=== PATIENT | male | born 1960 | race Caucasian/White ===

== ENCOUNTER 2019-03-28 07:57 | Outpatient (CLI) | payer BC, OTHER ==
[~2019-03-28 07:57] MED LIST: DOXY100T2 PO; RIVA15TA PO
[2019-03-28 09:20] LABS: *BILIRUBIN,URIN NEGATIVE (NEGATIVE); *BLOOD, URINE NEGATIVE (NEGATIVE); *CLARITY,URINE CLEAR (CLEAR); *COLOR,URINE YELLOW (YELLOW); *KETONES,URINE NEGATIVE (NEGATIVE); *UROBILINOGEN,URINE 0.2 E.U./dl (NORMAL); LEUKOCYTE ESTERASE ,URINE 1+ (NEGATIVE); NITRITE, URINE NEGATIVE (NEGATIVE); UGLUCOSE NEGATIVE (NEGATIVE)
[2019-03-28 09:32] LABS: BACTERIA,URINE NONE SEEN /HPF (NONE SEEN); RBC,URINE 0-3 /HPF (0-3)
[2019-03-28 09:33] LABS: MUCUS,URINE FEW /LPF (0-FEW); SQUAMOUS EPITHELIAL CELL,UR NONE SEEN /HPF (NONE SEEN)
[2019-03-28 09:44] LABS: BASOPHILS % (AUTO) 0.7 % (0.0-2.0); EOSINOPHILS # (AUTO) 0.1 K/uL (0.0-0.7); EOSINOPHILS % (AUTO) 2.3 % (0.0-7.0); HEMATOCRIT 46.4 % (36.7-47.1); HEMOGLOBIN 15.6 g/dL (12.5-16.3); LYMPHOCYTES # (AUTO) 2.1 K/uL (20.0-40.0); LYMPHOCYTES % (AUTO) 41.2 % (20.5-51.5); MEAN CORPUSCULAR HEMOGLOBIN 32.3 uug (23.8-33.4); MEAN CORPUSCULAR HGB CONC 34 g/dL (32.5-36.3); MEAN CORPUSCULAR VOLUME 95.9 fL (73.0-96.2); MONOCYTES # (AUTO) 0.3 K/uL (2.0-10.0); MONOCYTES % (AUTO) 6.6 % (0.0-11.0); NEUTROPHILS # (AUTO) 2.5 K/uL (1.8-8.9); NEUTROPHILS % (AUTO) 49.2 % (38.5-71.5); PLATELET COUNT (AUTO) 167 K/uL (152-348); RED BLOOD CELL COUNT(AUTO) 4.84 MIL/uL (4.06-5.63); WHITE BLOOD COUNT (AUTO) 5.1 K/uL (3.6-10.2)
[2019-03-28 09:58] LABS: BILIRUBIN,TOTAL 0.6 mg/dL (0.2-1.0); POTASSIUM 4.2 mmol/L (3.5-5.1); TOTAL PROTEIN, SERUM 7.1 g/dL (6.4-8.2); URIC ACID 5.4 mg/dL (3.5-7.2)
[2019-03-28 10:19] LABS: THYROID STIMULATING HORMONE 3.158 mIU/mL (0.358-3.740)
[2019-03-29 08:09] LABS: TRIIODOTHYRONINE, FREE 3.3 pg/mL (2.0-4.4)
[2019-03-29 12:06] LABS: *TESTOSTERONE, SERUM 186 ng/dL (264-916)
== END 2019-03-28 23:59 | disposition home or self-care (01) ==
LOC: LAB 07:57
PROVIDERS: ATTEND Legal Medicine
DX: Z00.00 Encounter for general adult medical examination without abnormal findings (principal)
CPT/HCPCS: 36415; 70030-TC; 83550; 84153; 84402; 84403; 84443; 84481; 84550; 85025; 85651; 86140; 87086

== ENCOUNTER 2019-04-17 20:39 | Emergency (ER) | payer BC, OTHER ==
[~2019-04-17] VITALS: Ht 177.8 cm; Wt 92.5 kg
--- NOTE | 2019-04-17 20:48 | NUR ---
ERMD at bedside
[2019-04-17] MEDS ORDERED: IPRATROPIUM BROMIDE 0.5 MG/2.5 ML NEBU NEB ONE (21:00)
[2019-04-17] MEDS ORDERED: ALBUTEROL SULFATE 2.5 MG/3 ML NEBU NEB ONE (21:00)
[2019-04-17 21:16] LABS: BASOPHILS % (AUTO) 0.5 % (0.0-2.0); EOSINOPHILS # (AUTO) 0.1 K/uL (0.0-0.7); HEMATOCRIT 41.8 % (36.7-47.1); HEMOGLOBIN 14.2 g/dL (12.5-16.3); LYMPHOCYTES # (AUTO) 2.4 K/uL (20.0-40.0); LYMPHOCYTES % (AUTO) 33.6 % (20.5-51.5); MEAN CORPUSCULAR HEMOGLOBIN 32.2 uug (23.8-33.4); MEAN CORPUSCULAR HGB CONC 34 g/dL (32.5-36.3); MEAN CORPUSCULAR VOLUME 95.1 fL (73.0-96.2); MONOCYTES # (AUTO) 0.7 K/uL (2.0-10.0); MONOCYTES % (AUTO) 9.2 % (0.0-11.0); NEUTROPHILS % (AUTO) 55.7 % (38.5-71.5); PLATELET COUNT (AUTO) 152 K/uL (152-348); WHITE BLOOD COUNT (AUTO) 7.3 K/uL (3.6-10.2)
[2019-04-17 21:23] LABS: CREATININE 1.3 mg/dL (0.6-1.3)
[2019-04-17] MEDS ORDERED: IPRATROPIUM BROMIDE 0.5 MG/2.5 ML NEBU ONE (21:25)
[2019-04-17] MEDS ORDERED: ALBUTEROL SULFATE 2.5 MG/3 ML NEBU ONE (21:25)
--- NOTE | 2019-04-17 21:25 | NUR ---
Patient ambulated with stable gait. Speech clear, speaks in complte sentences. A/Ox4. No neuro deficits noted. Patient came for c/o cough x6mths and difficulty with breathing. No observed cough upon assessment. No cardiovascular distress noted. All pulses palpable. at bedside accompanying patient. Patient in bed at lowest position, sr upx2, call light within reach.
--- NOTE | 2019-04-17 22:30 | NUR ---
Patient discharged to home in stable conditon. Written and verbal after care instructions given. Patient verbalizes understanding of instructions. Patient ambulated with stable gait.
[2019-04-17 22:55] VITALS: BP 119/72
== END 2019-04-17 22:56 | disposition home or self-care (01) ==
LOC: ER 20:39
DX: R05 Cough (principal); R06.02 Shortness of breath; Z87.891 Personal history of nicotine dependence; Z79.899 Other long term (current) drug therapy; Z79.2 Long term (current) use of antibiotics
CPT/HCPCS: 36415; 71045; 85025; 87040; A4663; J3590

== ENCOUNTER 2019-06-11 | Outpatient (CLI) | payer BC, OTHER | END 2019-06-11 23:59 | disposition home or self-care (01) | CPT/HCPCS: 36415; 84153; 84403; 84443; 85025 ==

== ENCOUNTER 2019-09-04 19:51 | Emergency (ER) | payer BC, OTHER ==
[~2019-09-04] VITALS: Ht 180.3 cm; Wt 90.7 kg
--- NOTE | 2019-09-04 20:10 | NUR ---
Dr. Antony at bedside for MSE
[2019-09-04] MEDS ORDERED: IV NORMAL SALINE 1000 ML BAG IV ONE (20:45)
[2019-09-04] MEDS ORDERED: KETOROLAC TROMETHAMINE 15 MG INJ IVP ONE ×2 (20:45→23:00)
[2019-09-04 20:57] LABS: BASOPHILS # (AUTO) 0.1 K/uL (0.0-8.0); BASOPHILS % (AUTO) 0.9 % (0.0-2.0); EOSINOPHILS # (AUTO) 0.1 K/uL (0.0-0.7); EOSINOPHILS % (AUTO) 0.9 % (0.0-7.0); HEMATOCRIT 42.7 % (36.7-47.1); HEMOGLOBIN 14.4 g/dL (12.5-16.3); LYMPHOCYTES % (AUTO) 25.5 % (20.5-51.5); MEAN CORPUSCULAR HGB CONC 34 g/dL (32.5-36.3); MEAN CORPUSCULAR VOLUME 97.7 fL (73.0-96.2); MONOCYTES # (AUTO) 0.5 K/uL (2.0-10.0); MONOCYTES % (AUTO) 5.8 % (0.0-11.0); NEUTROPHILS # (AUTO) 5.2 K/uL (1.8-8.9); NEUTROPHILS % (AUTO) 66.9 % (38.5-71.5); PLATELET COUNT (AUTO) 159 K/uL (152-348); RED BLOOD CELL COUNT(AUTO) 4.37 MIL/uL (4.06-5.63); WHITE BLOOD COUNT (AUTO) 7.8 K/uL (3.6-10.2)
[2019-09-04 21:12] LABS: *BILIRUBIN,URIN NEGATIVE (NEGATIVE); *BLOOD, URINE NEGATIVE (NEGATIVE); *CLARITY,URINE CLOUDY (CLEAR); *COLOR,URINE YELLOW (YELLOW); *KETONES,URINE NEGATIVE (NEGATIVE); *UROBILINOGEN,URINE 0.2 E.U./dl (NORMAL); LEUKOCYTE ESTERASE ,URINE TRACE (NEGATIVE); NITRITE, URINE NEGATIVE (NEGATIVE); PH,URINE 7.5 (5.0-8.0); UGLUCOSE NEGATIVE (NEGATIVE)
--- NOTE | 2019-09-04 21:12 | NUR ---
PATIENT TAKEN TO RADIOLOGY DEPT. FOR CT SCAN
[2019-09-04 21:17] LABS: CREATININE 1.2 mg/dL (0.6-1.3); POTASSIUM 4.3 mmol/L (3.5-5.1)
[2019-09-04 21:22] LABS: BILIRUBIN,DIRECT 0.1 mg/dL (0.0-0.2); BILIRUBIN,TOTAL 0.7 mg/dL (0.2-1.0); TOTAL PROTEIN, SERUM 7.1 g/dL (6.4-8.2)
--- NOTE | 2019-09-04 21:24 | NUR ---
PT BACK FROM RADIOLOGY DEPT.
[2019-09-04 21:34] LABS: URINE AMORPHOUS PHOSPHATES MANY /HPF
[2019-09-04] MEDS ORDERED: KETOROLAC TROMETHAMINE 15 MG INJ ONE (22:51)
--- NOTE | 2019-09-04 23:05 | NUR ---
IV removed. Catheter intact and site benign. Pressure and 4x4 gauze applied to site. No bleeding noted. Patient given written and verbal discharge instructions. Patient verbalizes understanding of instructions. Patient is ambulatory with steady gait.
[2019-09-04 23:06] VITALS: BP 133/75
== END 2019-09-04 23:05 | disposition home or self-care (01) ==
LOC: ER 19:53
DX: N39.0 Urinary tract infection, site not specified (principal); Z87.891 Personal history of nicotine dependence; Z79.2 Long term (current) use of antibiotics; Z79.899 Other long term (current) drug therapy
CPT/HCPCS: 36415; 74176; 80048; 80076; 81000; 81001; 83690; 85025; 87086; 93005; 96374; 99284; J1885; A4663; J7030

== ENCOUNTER 2019-12-16 08:04 | Outpatient (CLI) | payer BC, OTHER ==
[2019-12-16 09:51] LABS: *BILIRUBIN,URIN NEGATIVE (NEGATIVE); *BLOOD, URINE NEGATIVE (NEGATIVE); *CLARITY,URINE CLEAR (CLEAR); *COLOR,URINE YELLOW (YELLOW); *KETONES,URINE NEGATIVE (NEGATIVE); *UROBILINOGEN,URINE 0.2 E.U./dl (NORMAL); LEUKOCYTE ESTERASE ,URINE NEGATIVE (NEGATIVE); NITRITE, URINE NEGATIVE (NEGATIVE); PH,URINE 5.5 (5.0-8.0); UGLUCOSE NEGATIVE (NEGATIVE)
[2019-12-16 09:53] LABS: BASOPHILS % (AUTO) 0.9 % (0.0-2.0); EOSINOPHILS # (AUTO) 0.1 K/uL (0.0-0.7); EOSINOPHILS % (AUTO) 1.7 % (0.0-7.0); HEMATOCRIT 44.8 % (36.7-47.1); HEMOGLOBIN 15.1 g/dL (12.5-16.3); LYMPHOCYTES # (AUTO) 1.6 K/uL (20.0-40.0); LYMPHOCYTES % (AUTO) 40.5 % (20.5-51.5); MEAN CORPUSCULAR HEMOGLOBIN 32.8 uug (23.8-33.4); MEAN CORPUSCULAR HGB CONC 34 g/dL (32.5-36.3); MEAN CORPUSCULAR VOLUME 97.2 fL (73.0-96.2); MONOCYTES # (AUTO) 0.3 K/uL (2.0-10.0); MONOCYTES % (AUTO) 6.4 % (0.0-11.0); NEUTROPHILS % (AUTO) 50.5 % (38.5-71.5); PLATELET COUNT (AUTO) 150 K/uL (152-348); WHITE BLOOD COUNT (AUTO) 3.9 K/uL (3.6-10.2)
[2019-12-16 10:47] LABS: *RHEUMATOID FACTOR SCREEN NEGATIVE (NEGATIVE)
[2019-12-16 11:46] LABS: BILIRUBIN,TOTAL 0.6 mg/dL (0.2-1.0); CREATININE 0.9 mg/dL (0.6-1.3); TOTAL PROTEIN, SERUM 7.2 g/dL (6.4-8.2)
[2019-12-16 12:11] LABS: URIC ACID 4.9 mg/dL (3.5-7.2)
[2019-12-16 12:31] LABS: THYROID STIMULATING HORMONE 1.82 mIU/mL (0.358-3.740)
[2019-12-17 08:06] LABS: *TESTOSTERONE, SERUM 203 ng/dL (264-916)
[2019-12-17 19:07] LABS: *SJOGREN'S ANTI-SS-A <0.2 AI (0.0-0.9); *SJOGREN'S ANTI-SS-B <0.2 AI (0.0-0.9); *SMITH ANTIBODIES <0.2 AI (0.0-0.9); ANTI-DNA(DS) AB, QN 1 IU/mL (0-9)
[2019-12-19 08:07] LABS: TEST, %FREE+WK BOUND 25.6 % (9.0-46.0)
== END 2019-12-16 23:29 | disposition home or self-care (01) ==
LOC: LAB 08:04
PROVIDERS: ATTEND Legal Medicine
DX: Z00.00 Encounter for general adult medical examination without abnormal findings (principal); I12.9 Hypertensive chronic kidney disease with stage 1 through stage 4 chronic kidney disease, or unspecified chronic kidney disease; E11.22 Type 2 diabetes mellitus with diabetic chronic kidney disease; N18.9 Chronic kidney disease, unspecified; E03.9 Hypothyroidism, unspecified; D64.9 Anemia, unspecified; E55.9 Vitamin D deficiency, unspecified; R10.9 Unspecified abdominal pain
CPT/HCPCS: 70030-TC; 82306; 83550; 84153; 84402; 84403; 84443; 84550; 85025; 85651; 86038; 86430; 87086

== ENCOUNTER 2020-01-19 06:00 | Emergency (ER) | payer BC, OTHER ==
[~2020-01-19] VITALS: Ht 177.8 cm; Wt 95.3 kg
--- NOTE | 2020-01-19 06:11 | NUR ---
Patient walked into ER from home with c/o being dizzy and high blood pressure since yesterday morning, patient denies any chest pain or shortness of breath at this time, states he feels like the room is spinning, c/o headache, neck and shoulder pain.
[2020-01-19] MEDS ORDERED: MECLIZINE HCL 25 MG TABLET ONE (06:23)
[2020-01-19] MEDS ORDERED: MECLIZINE HCL 25 MG TABLET PO ONE (06:30)
[2020-01-19 06:35] LABS: HEMOGLOBIN 15.1 g/dL (12.5-16.3); NEUTROPHILS # (AUTO) 3.5 K/uL (1.8-8.9)
[2020-01-19] MEDS ORDERED: CLONIDINE HCL 0.1 MG TABLET PO ONE (06:45)
[2020-01-19] MEDS ORDERED: CLONIDINE HCL 0.1 MG TABLET ONE (06:47)
[2020-01-19 06:48] LABS: BASOPHILS % (AUTO) 0.7 % (0.0-2.0); EOSINOPHILS # (AUTO) 0.1 K/uL (0.0-0.7); EOSINOPHILS % (AUTO) 1.1 % (0.0-7.0); HEMATOCRIT 44.5 % (36.7-47.1); LYMPHOCYTES # (AUTO) 1.6 K/uL (20.0-40.0); LYMPHOCYTES % (AUTO) 29.5 % (20.5-51.5); MEAN CORPUSCULAR HGB CONC 34 g/dL (32.5-36.3); MEAN CORPUSCULAR VOLUME 97.3 fL (73.0-96.2); MONOCYTES # (AUTO) 0.4 K/uL (2.0-10.0); MONOCYTES % (AUTO) 6.5 % (0.0-11.0); NEUTROPHILS % (AUTO) 62.2 % (38.5-71.5); PLATELET COUNT (AUTO) 136 K/uL (152-348); POTASSIUM 3.9 mmol/L (3.5-5.1); RED BLOOD CELL COUNT(AUTO) 4.57 MIL/uL (4.06-5.63)
[2020-01-19 06:49] LABS: WHITE BLOOD COUNT (AUTO) 5.6 K/uL (3.6-10.2)
--- NOTE | 2020-01-19 07:10 | NUR ---
Pt denies dizziness at this time and walked to the bathroom w/o difficulty.
--- NOTE | 2020-01-19 07:30 | NUR ---
Patient discharged to home in stable condition. Written and verbal after care instructions given. Patient verbalizes understanding of instructions. Stressed follow up or return to ER for worseningof s/s.
[2020-01-19 07:34] VITALS: BP 106/93
== END 2020-01-19 07:35 | disposition home or self-care (01) ==
LOC: ER 06:02
DX: I10 Essential (primary) hypertension (principal); R51 Headache; R42 Dizziness and giddiness
CPT/HCPCS: 36415; 85025; 93005; A4663; J8597

== ENCOUNTER 2020-04-15 10:41 | Outpatient (CLI) | payer BC, OTHER | END 2020-04-15 23:59 | disposition home or self-care (01) | LOC: RAD 10:41 | PROVIDERS: ATTEND Legal Medicine | DX: M17.0 Bilateral primary osteoarthritis of knee (principal); M79.89 Other specified soft tissue disorders | CPT/HCPCS: 73562 ==

== ENCOUNTER 2020-04-27 09:00 | Emergency (ER) | payer BC, OTHER ==
[~2020-04-27] VITALS: Ht 177.8 cm; Wt 95.3 kg
[2020-04-27] MEDS: MECLIZINE HCL 25 MG TABLET PO ONE (09:14)
[2020-04-27] MEDS ORDERED: MECLIZINE HCL 25 MG TABLET ONE (09:16)
[2020-04-27 09:28] LABS: BASOPHILS % (AUTO) 0.7 % (0.0-2.0); EOSINOPHILS # (AUTO) 0.1 K/uL (0.0-0.7); EOSINOPHILS % (AUTO) 1.1 % (0.0-7.0); HEMATOCRIT 45.6 % (36.7-47.1); HEMOGLOBIN 15.5 g/dL (12.5-16.3); LYMPHOCYTES # (AUTO) 1.7 K/uL (20.0-40.0); LYMPHOCYTES % (AUTO) 33.6 % (20.5-51.5); MEAN CORPUSCULAR HEMOGLOBIN 33.1 uug (23.8-33.4); MEAN CORPUSCULAR HGB CONC 34 g/dL (32.5-36.3); MEAN CORPUSCULAR VOLUME 97.5 fL (73.0-96.2); MONOCYTES # (AUTO) 0.2 K/uL (2.0-10.0); NEUTROPHILS % (AUTO) 59.6 % (38.5-71.5); PLATELET COUNT (AUTO) 154 K/uL (152-348); RED BLOOD CELL COUNT(AUTO) 4.68 MIL/uL (4.06-5.63)
[2020-04-27 09:38] LABS: CREATININE 1.2 mg/dL (0.6-1.3); POTASSIUM 4.2 mmol/L (3.5-5.1)
--- NOTE | 2020-04-27 09:55 | NUR ---
PATIENT WAS SEEN BY . 12 LEAD EKGDONE. URINE SENT TO LAB. CT DONE. DRGREENSPAN AT BEDSIDE SPEAKING TOPATIENTABOUTTEST RESULTSAND PLAN. BP NOW AT 149/97, PATIENT STATES DIZZINESS HAS DIMINISHED SOME
--- NOTE | 2020-04-27 10:07 | NUR ---
DC, RX AND FOLLOW UP INSTRUCTIONS GIVEN AND EXPLAINED TO PATIENT WHO STATES HE UNDERSTANDS ALL INSTRUCTIONS. MECLIZINE PRECAUTIONS STATED TO PATIENT AND
== END 2020-04-27 10:08 | disposition home or self-care (01) ==
LOC: ER 09:00
DX: I10 Essential (primary) hypertension (principal); R42 Dizziness and giddiness; Z87.891 Personal history of nicotine dependence
CPT/HCPCS: 36415; 70030-TC; 70450; 85025; 93005; A4663; J8597

== ENCOUNTER 2020-08-04 07:43 | Outpatient (CLI) | payer BC, OTHER ==
[2020-08-04 08:22] LABS: *BILIRUBIN,URIN NEGATIVE (NEGATIVE); *BLOOD, URINE NEGATIVE (NEGATIVE); *CLARITY,URINE SLIGHTLY CLOUDY (CLEAR); *COLOR,URINE YELLOW (YELLOW); *KETONES,URINE NEGATIVE (NEGATIVE); *UROBILINOGEN,URINE 0.2 E.U./dl (NORMAL); LEUKOCYTE ESTERASE ,URINE NEGATIVE (NEGATIVE); NITRITE, URINE NEGATIVE (NEGATIVE); UGLUCOSE NEGATIVE (NEGATIVE)
[2020-08-04 09:01] LABS: BILIRUBIN,TOTAL 0.6 mg/dL (0.2-1.0); CREATININE 1.1 mg/dL (0.6-1.3); POTASSIUM 4.4 mmol/L (3.5-5.1); TOTAL PROTEIN, SERUM 7.4 g/dL (6.4-8.2)
[2020-08-04 09:02] LABS: BASOPHILS % (AUTO) 0.6 % (0.0-2.0); EOSINOPHILS # (AUTO) 0.1 K/uL (0.0-0.7); EOSINOPHILS % (AUTO) 1.3 % (0.0-7.0); HEMATOCRIT 45.9 % (36.7-47.1); HEMOGLOBIN 16.1 g/dL (12.5-16.3); LYMPHOCYTES # (AUTO) 1.8 K/uL (20.0-40.0); LYMPHOCYTES % (AUTO) 34.8 % (20.5-51.5); MEAN CORPUSCULAR HGB CONC 35 g/dL (32.5-36.3); MEAN CORPUSCULAR VOLUME 97.1 fL (73.0-96.2); MONOCYTES # (AUTO) 0.3 K/uL (2.0-10.0); MONOCYTES % (AUTO) 5.7 % (0.0-11.0); NEUTROPHILS % (AUTO) 57.6 % (38.5-71.5); PLATELET COUNT (AUTO) 181 K/uL (152-348); RED BLOOD CELL COUNT(AUTO) 4.73 MIL/uL (4.06-5.63); WHITE BLOOD COUNT (AUTO) 5.2 K/uL (3.6-10.2)
[2020-08-04 09:05] LABS: THYROID STIMULATING HORMONE 2.044 mIU/mL (0.358-3.740)
[2020-08-04 10:31] LABS: URIC ACID 4.7 mg/dL (3.5-7.2)
[2020-08-04 11:32] LABS: RBC,URINE NONE SEEN /HPF (0-3)
[2020-08-04 11:33] LABS: SQUAMOUS EPITHELIAL CELL,UR FEW /HPF (NONE SEEN); WBC,URINE 0-3 /HPF (0-3)
[2020-08-04 11:34] LABS: BACTERIA,URINE FEW /HPF (NONE SEEN)
[2020-08-05 11:10] LABS: *TESTOSTERONE, SERUM 273 ng/dL (264-916)
== END 2020-08-04 23:59 | disposition home or self-care (01) ==
LOC: LAB 07:43
PROVIDERS: ATTEND Legal Medicine
DX: I12.9 Hypertensive chronic kidney disease with stage 1 through stage 4 chronic kidney disease, or unspecified chronic kidney disease (principal); E11.22 Type 2 diabetes mellitus with diabetic chronic kidney disease; N18.9 Chronic kidney disease, unspecified; E55.9 Vitamin D deficiency, unspecified; E03.9 Hypothyroidism, unspecified; E78.00 Pure hypercholesterolemia, unspecified; Z00.00 Encounter for general adult medical examination without abnormal findings
CPT/HCPCS: 36415; 83550; 84153; 84402; 84403; 84443; 84550; 85025

== ENCOUNTER 2021-02-01 07:38 | Outpatient (CLI) | payer BC, OTHER ==
[2021-02-01 08:40] LABS: *BILIRUBIN,URIN NEGATIVE (NEGATIVE); *BLOOD, URINE NEGATIVE (NEGATIVE); *CLARITY,URINE CLEAR (CLEAR); *COLOR,URINE YELLOW (YELLOW); *KETONES,URINE NEGATIVE (NEGATIVE); *UROBILINOGEN,URINE 0.2 E.U./dl (NORMAL); LEUKOCYTE ESTERASE ,URINE TRACE (NEGATIVE); NITRITE, URINE NEGATIVE (NEGATIVE); PH,URINE 5.5 (5.0-8.0); UGLUCOSE NEGATIVE (NEGATIVE)
[2021-02-01 08:44] LABS: BASOPHILS % (AUTO) 0.6 % (0.0-2.0); EOSINOPHILS # (AUTO) 0.1 K/uL (0.0-0.7); EOSINOPHILS % (AUTO) 1.5 % (0.0-7.0); HEMATOCRIT 45.9 % (36.7-47.1); HEMOGLOBIN 15.6 g/dL (12.5-16.3); LYMPHOCYTES % (AUTO) 36.6 % (20.5-51.5); MEAN CORPUSCULAR HEMOGLOBIN 33.2 uug (23.8-33.4); MEAN CORPUSCULAR HGB CONC 34 g/dL (32.5-36.3); MEAN CORPUSCULAR VOLUME 97.8 fL (73.0-96.2); MONOCYTES # (AUTO) 0.4 K/uL (2.0-10.0); MONOCYTES % (AUTO) 7.1 % (0.0-11.0); NEUTROPHILS % (AUTO) 54.2 % (38.5-71.5); PLATELET COUNT (AUTO) 164 K/uL (152-348); RED BLOOD CELL COUNT(AUTO) 4.69 MIL/uL (4.06-5.63); WHITE BLOOD COUNT (AUTO) 5.5 K/uL (3.6-10.2)
[2021-02-01 08:58] LABS: THYROID STIMULATING HORMONE 2.498 mIU/mL (0.358-3.740)
[2021-02-01 12:08] LABS: BILIRUBIN,TOTAL 0.5 mg/dL (0.2-1.0); CREATININE 1.1 mg/dL (0.6-1.3); POTASSIUM 4.7 mmol/L (3.5-5.1)
[2021-02-01 14:02] LABS: BACTERIA,URINE NONE SEEN /HPF (NONE SEEN); RBC,URINE NONE SEEN /HPF (0-3); SQUAMOUS EPITHELIAL CELL,UR NONE SEEN /HPF (NONE SEEN); WBC,URINE 0-3 /HPF (0-3)
[2021-02-01 17:15] LABS: URIC ACID 5.2 mg/dL (3.5-7.2)
== END 2021-02-01 23:59 | disposition home or self-care (01) ==
LOC: LAB 07:38
PROVIDERS: ATTEND Legal Medicine
DX: I10 Essential (primary) hypertension (principal); E11.9 Type 2 diabetes mellitus without complications; E78.00 Pure hypercholesterolemia, unspecified; E03.9 Hypothyroidism, unspecified; D64.9 Anemia, unspecified; Z00.00 Encounter for general adult medical examination without abnormal findings; E55.9 Vitamin D deficiency, unspecified; R53.1 Weakness
CPT/HCPCS: 82306; 82746; 83550; 84153; 84402; 84403; 84443; 84550; 85025; 87086

== ENCOUNTER 2021-05-18 07:11 | Outpatient (CLI) | payer BC, OTHER ==
[2021-05-18 08:41] LABS: HEMATOCRIT 44.7 % (36.7-47.1); MEAN CORPUSCULAR HEMOGLOBIN 33.1 uug (23.8-33.4); MEAN CORPUSCULAR VOLUME 97.1 fL (73.0-96.2); PLATELET COUNT (AUTO) 163 K/uL (152-348)
[2021-05-18 08:43] LABS: *BILIRUBIN,URIN NEGATIVE (NEGATIVE); *BLOOD, URINE NEGATIVE (NEGATIVE); *CLARITY,URINE CLEAR (CLEAR); *COLOR,URINE YELLOW (YELLOW); *KETONES,URINE NEGATIVE (NEGATIVE); *UROBILINOGEN,URINE 0.2 E.U./dl (NORMAL); LEUKOCYTE ESTERASE ,URINE 1+ (NEGATIVE); NITRITE, URINE NEGATIVE (NEGATIVE); PH,URINE 5.5 (5.0-8.0); UGLUCOSE NEGATIVE (NEGATIVE)
[2021-05-18 08:57] LABS: THYROID STIMULATING HORMONE 1.873 mIU/mL (0.358-3.740)
[2021-05-18 09:57] LABS: BILIRUBIN,TOTAL 0.7 mg/dL (0.2-1.0); POTASSIUM 4.2 mmol/L (3.5-5.1); TOTAL PROTEIN, SERUM 7.5 g/dL (6.4-8.2); URIC ACID 5.6 mg/dL (3.5-7.2)
[2021-05-18 13:59] LABS: BACTERIA,URINE FEW /HPF (NONE SEEN); RBC,URINE 0-3 /HPF (0-3); SQUAMOUS EPITHELIAL CELL,UR NONE SEEN /HPF (NONE SEEN); URINE AMORPHOUS URATE MANY /HPF
[2021-05-19 06:06] LABS: *TESTOSTERONE, SERUM 167 ng/dL (264-916)
[2021-05-19 11:07] LABS: *SJOGREN'S ANTI-SS-A <0.2 AI (0.0-0.9); *SJOGREN'S ANTI-SS-B <0.2 AI (0.0-0.9); *SMITH ANTIBODIES <0.2 AI (0.0-0.9); ANTI-DNA(DS) AB, QN <1 IU/mL (0-9)
== END 2021-05-18 23:59 | disposition home or self-care (01) ==
LOC: LAB 07:11
PROVIDERS: ATTEND Legal Medicine
DX: N39.0 Urinary tract infection, site not specified (principal); E03.9 Hypothyroidism, unspecified; D64.9 Anemia, unspecified; E55.9 Vitamin D deficiency, unspecified; R30.0 Dysuria; R53.1 Weakness; R10.9 Unspecified abdominal pain; Z00.00 Encounter for general adult medical examination without abnormal findings
CPT/HCPCS: 36415; 70030-TC; 82306; 82746; 83550; 84153; 84402; 84403; 84443; 84550; 85025; 85651; 86038; 86140; 87086

== ENCOUNTER 2021-07-06 11:38 | Emergency (ER) | payer BC, OTHER ==
[~2021-07-06] VITALS: Ht 177.8 cm; Wt 95.3 kg
[2021-07-06] MEDS ORDERED: TAMS-3 PO (12:11)
[2021-07-06] MEDS ORDERED: LOSA50TA39 PO (12:11)
[2021-07-06] MEDS ORDERED: CYCLOBENZAPRINE HCL 10 MG TABLET PO ONE (12:15)
[2021-07-06] MEDS ORDERED: KETOROLAC TROMETHAMINE 60 MG INJ IM ONE ×2 (12:15→12:22)
[2021-07-06] MEDS ORDERED: CYCLOBENZAPRINE HCL 10 MG TABLET ONE (12:22)
[2021-07-06] MEDS ORDERED: CYCL10TA9 PO (14:21)
[2021-07-06] MEDS ORDERED: NAPR-1164 PO (14:21)
--- NOTE | 2021-07-06 14:30 | NUR ---
DR ATKINSON AT BEDSIDE SPOKE WITH PATIENT MADE AWARE OF TEST RESULTS.
--- NOTE | 2021-07-06 14:37 | NUR ---
Patient discharged to home in stable condition. Written and verbal after care instructions given. Patient verbalizes understanding of instructions. Stressed follow up or return to ER for worsening s/s.
[2021-07-06 14:39] VITALS: BP 122/81
== END 2021-07-06 14:40 | disposition home or self-care (01) ==
LOC: ER 11:38
DX: S13.9XXA Sprain of joints and ligaments of unspecified parts of neck, initial encounter (principal); S00.81XA Abrasion of other part of head, initial encounter; V49.40XA Driver injured in collision with unspecified motor vehicles in traffic accident, initial encounter; Y92.414 Local residential or business street as the place of occurrence of the external cause; M79.18 Myalgia, other site; Z87.891 Personal history of nicotine dependence; E78.5 Hyperlipidemia, unspecified; Z79.01 Long term (current) use of anticoagulants; Z79.899 Other long term (current) drug therapy; M47.9 Spondylosis, unspecified
CPT/HCPCS: 70450; 72125; 96372; 99285; J1885; A4663

== ENCOUNTER 2021-11-28 07:20 | Outpatient (CLI) | payer BC, OTHER ==
[~2021-11-28 07:20] MED LIST changes: +CYCL10TA9 PO; -DOXY100T2 PO; +LOSA50TA39 PO; +NAPR-1164 PO; -RIVA15TA PO; +TAMS-3 PO
[2021-11-28 08:33] LABS: HEMATOCRIT 43.7 % (36.7-47.1); MEAN CORPUSCULAR HEMOGLOBIN 33.2 uug (23.8-33.4); MEAN CORPUSCULAR VOLUME 96.9 fL (73.0-96.2); PLATELET COUNT (AUTO) 173 K/uL (152-348)
[2021-11-28 08:47] LABS: *BILIRUBIN,URIN NEGATIVE (NEGATIVE); *BLOOD, URINE NEGATIVE (NEGATIVE); *CLARITY,URINE CLEAR (CLEAR); *COLOR,URINE YELLOW (YELLOW); *KETONES,URINE NEGATIVE (NEGATIVE); *UROBILINOGEN,URINE 0.2 E.U./dl (NORMAL); LEUKOCYTE ESTERASE ,URINE TRACE (NEGATIVE); NITRITE, URINE NEGATIVE (NEGATIVE); PH,URINE 5.5 (5.0-8.0); UGLUCOSE NEGATIVE (NEGATIVE)
[2021-11-28 08:51] LABS: BILIRUBIN,TOTAL 0.7 mg/dL (0.2-1.0); POTASSIUM 4.1 mmol/L (3.5-5.1)
[2021-11-28 08:56] LABS: THYROID STIMULATING HORMONE 2.015 mIU/mL (0.358-3.740)
[2021-11-28 15:45] LABS: BACTERIA,URINE MODERATE /HPF (NONE SEEN); RBC,URINE 0-3 /HPF (0-3); SQUAMOUS EPITHELIAL CELL,UR FEW /HPF (NONE SEEN)
[2021-11-29 08:06] LABS: *TESTOSTERONE, SERUM 194 ng/dL (264-916)
== END 2021-11-28 23:59 | disposition home or self-care (01) ==
LOC: LAB 07:20
PROVIDERS: ATTEND Legal Medicine
DX: E11.9 Type 2 diabetes mellitus without complications (principal); E78.5 Hyperlipidemia, unspecified; E55.9 Vitamin D deficiency, unspecified; N40.0 Benign prostatic hyperplasia without lower urinary tract symptoms; E03.9 Hypothyroidism, unspecified; D64.9 Anemia, unspecified; Z00.00 Encounter for general adult medical examination without abnormal findings
CPT/HCPCS: 36415; 82306; 82746; 83550; 84153; 84402; 84403; 84443; 84550; 85025; 87086

== ENCOUNTER 2022-11-29 07:38 | Outpatient (CLI) | payer BC, OTHER ==
[2022-11-29 08:41] LABS: *BILIRUBIN,URIN NEGATIVE (NEGATIVE); *BLOOD, URINE NEGATIVE (NEGATIVE); *CLARITY,URINE CLEAR (CLEAR); *COLOR,URINE YELLOW (YELLOW); *KETONES,URINE NEGATIVE (NEGATIVE); *UROBILINOGEN,URINE 0.2 E.U./dl (NORMAL); LEUKOCYTE ESTERASE ,URINE TRACE (NEGATIVE); NITRITE, URINE NEGATIVE (NEGATIVE); PH,URINE 5.5 (5.0-8.0); UGLUCOSE NEGATIVE (NEGATIVE)
[2022-11-29 08:59] LABS: BILIRUBIN,DIRECT 0.1 mg/dL (0.0-0.2); BILIRUBIN,TOTAL 0.5 mg/dL (0.2-1.0); CREATININE 0.9 mg/dL (0.6-1.3); POTASSIUM 4.1 mmol/L (3.5-5.1); TOTAL PROTEIN, SERUM 7.1 g/dL (6.4-8.2)
[2022-11-29 09:05] LABS: HEMATOCRIT 45.3 % (36.7-47.1); MEAN CORPUSCULAR HEMOGLOBIN 32.9 uug (23.8-33.4); MEAN CORPUSCULAR VOLUME 96.4 fL (73.0-96.2); PLATELET COUNT (AUTO) 181 K/uL (152-348)
[2022-11-29 10:17] LABS: BACTERIA,URINE NONE SEEN /HPF (NONE SEEN); RBC,URINE NONE SEEN /HPF (0-3); SQUAMOUS EPITHELIAL CELL,UR NONE SEEN /HPF (NONE SEEN)
[2022-11-29 12:05] LABS: THYROID STIMULATING HORMONE 1.686 mIU/mL (0.358-3.740)
== END 2022-11-29 23:59 | disposition home or self-care (01) ==
LOC: LAB 07:38
PROVIDERS: ATTEND Internal Medicine
DX: I10 Essential (primary) hypertension (principal); N40.0 Benign prostatic hyperplasia without lower urinary tract symptoms; M19.90 Unspecified osteoarthritis, unspecified site
CPT/HCPCS: 36415; 82306; 84153; 84443; 85025; 86140

== ENCOUNTER 2023-03-16 07:32 | Outpatient (CLI) | payer BC, OTHER ==
[2023-03-16 09:15] LABS: *BILIRUBIN,URIN NEGATIVE (NEGATIVE); *BLOOD, URINE NEGATIVE (NEGATIVE); *CLARITY,URINE CLEAR (CLEAR); *COLOR,URINE YELLOW (YELLOW); *KETONES,URINE NEGATIVE (NEGATIVE); *UROBILINOGEN,URINE 0.2 E.U./dl (NORMAL); LEUKOCYTE ESTERASE ,URINE NEGATIVE (NEGATIVE); NITRITE, URINE NEGATIVE (NEGATIVE); UGLUCOSE NEGATIVE (NEGATIVE)
[2023-03-16 09:17] LABS: HEMATOCRIT 43.8 % (36.7-47.1); MEAN CORPUSCULAR HEMOGLOBIN 32.9 uug (23.8-33.4); MEAN CORPUSCULAR VOLUME 96.6 fL (73.0-96.2); PLATELET COUNT (AUTO) 169 K/uL (152-348)
[2023-03-16 09:31] LABS: IRON, SERUM 128 ug/dL (50-175)
[2023-03-16 09:45] LABS: THYROID STIMULATING HORMONE 1.418 mIU/mL (0.358-3.740)
[2023-03-16 09:46] LABS: ALANINE AMINOTRANSFERASE 25 U/L (16-63); ALKALINE PHOSPHATASE 46 U/L (50-136); ASPARTATE AMINOTRANSFERASE 13 U/L (15-37); BILIRUBIN,TOTAL 0.6 mg/dL (0.2-1.0); CARBON DIOXIDE 28 mmol/L (21-32); CHLORIDE 102 mmol/L (98-107); CHOLESTEROL 220 mg/dL (<200); CREATININE 0.9 mg/dL (0.6-1.3); FERRITIN 277 ng/mL (26-388); GLUCOSE 119 mg/dL (74-106); HDL CHOLESTEROL 42 mg/dL (40-60); MAGNESIUM 2.2 mg/dL (1.8-2.4); POTASSIUM 4.4 mmol/L (3.5-5.1); TOTAL PROTEIN, SERUM 7.3 g/dL (6.4-8.2); TRIGLYCERIDES 131 MG/DL (30-150); UREA NITROGEN, BLOOD 13 mg/dL (7-18)
[2023-03-17 11:06] LABS: *TESTOSTERONE, SERUM 124 ng/dL (264-916)
[2023-03-17 13:07] LABS: HEPATITIS A AB, IgM Negative (Negative); HEPATITIS B SURFACE AG Negative (Negative)
[2023-03-23 10:07] LABS: TEST, %FREE+WK BOUND 27.4 % (9.0-46.0)
== END 2023-03-16 23:59 | disposition home or self-care (01) ==
LOC: LAB 07:32
PROVIDERS: ATTEND Internal Medicine
DX: Z00.00 Encounter for general adult medical examination without abnormal findings (principal); N40.0 Benign prostatic hyperplasia without lower urinary tract symptoms; I10 Essential (primary) hypertension; V70.0XXA Driver of bus injured in collision with pedestrian or animal in nontraffic accident, initial encounter
CPT/HCPCS: 36415; 83550; 83735; 84153; 84402; 84403; 84443; 84550; 85025; 85651; 86140; 86705; 86709; 86762; 86803; 87340; 87806

== ENCOUNTER 2023-04-19 12:21 | Outpatient (CLI) | payer BC, OTHER ==
[2023-04-20 06:07] LABS: *TESTOSTERONE, SERUM 249 ng/dL (264-916); LUTEINIZING HORMONE 3.5 mIU/mL (1.7-8.6)
[2023-04-24 08:06] LABS: TEST, %FREE+WK BOUND 24.8 % (9.0-46.0); TEST, FREE+WK BOUND 61.8 ng/dL (40.0-250.0)
== END 2023-04-19 23:59 | disposition home or self-care (01) ==
LOC: LAB 12:21
PROVIDERS: ATTEND Internal Medicine
DX: R09.81 Nasal congestion (principal); M86.9 Osteomyelitis, unspecified; R43.9 Unspecified disturbances of smell and taste
CPT/HCPCS: 36415; 70486; 82670; 83002; 84402; 84403

== ENCOUNTER 2023-09-24 10:04 | Day surgery (SDC) | payer BC, OTHER ==
[2023-09-24] MEDS ORDERED: LIDOCAINE-MPF 2% 5 ML VIAL ONE (12:26)
[2023-09-24] MEDS ORDERED: PROPOFOL 200 MG/20 ML BOTTLE ONE (12:26)
[2023-09-24 13:30] VITALS: TEMP 97.8
== END 2023-09-24 13:35 | disposition home or self-care (01) ==
LOC: DS 10:04
PROVIDERS: ATTEND Internal Medicine Gastroenterology
DX: Z12.11 Encounter for screening for malignant neoplasm of colon (principal); K64.8 Other hemorrhoids; K63.89 Other specified diseases of intestine; I10 Essential (primary) hypertension; N40.0 Benign prostatic hyperplasia without lower urinary tract symptoms; Z79.899 Other long term (current) drug therapy; Z98.890 Other specified postprocedural states
CPT/HCPCS: 45378; 93005; J3490; J7120; A4663

== ENCOUNTER 2024-01-22 08:17 | Outpatient (CLI) | payer BC, OTHER ==
[2024-01-22 09:19] LABS: BASOPHILS % (AUTO) 0.9 % (0.0-2.0); EOSINOPHILS # (AUTO) 0.1 K/uL (0.0-0.7); EOSINOPHILS % (AUTO) 1.1 % (0.0-7.0); HEMATOCRIT 44.7 % (36.7-47.1); HEMOGLOBIN 15.5 g/dL (12.5-16.3); LYMPHOCYTES # (AUTO) 1.6 K/uL (0.8-4.8); LYMPHOCYTES % (AUTO) 33.8 % (20.5-51.5); MEAN CORPUSCULAR HEMOGLOBIN 32.7 uug (23.8-33.4); MEAN CORPUSCULAR HGB CONC 35 g/dL (32.5-36.3); MEAN CORPUSCULAR VOLUME 94.4 fL (73.0-96.2); MONOCYTES # (AUTO) 0.3 K/uL (0.1-1.30); NEUTROPHILS # (AUTO) 2.8 K/uL (1.8-8.9); NEUTROPHILS % (AUTO) 58.2 % (38.5-71.5); PLATELET COUNT (AUTO) 164 K/uL (152-348); RED BLOOD CELL COUNT(AUTO) 4.73 MIL/uL (4.06-5.63); RED CELL DISTRIBUTION WIDTH 12.5 % (12.1-16.2); WHITE BLOOD COUNT (AUTO) 4.7 K/uL (3.6-10.2)
[2024-01-22 09:36] LABS: ERYTHROCYTE SEDIMENTATION RATE 4 MM/HR (0-15)
[2024-01-22 09:38] LABS: *BILIRUBIN,URIN NEGATIVE (NEGATIVE); *CLARITY,URINE CLEAR (CLEAR); *COLOR,URINE YELLOW (YELLOW); *KETONES,URINE NEGATIVE (NEGATIVE); *PROTEIN,URINE NEGATIVE (NEGATIVE); *UROBILINOGEN,URINE 0.2 E.U./dl (NORMAL); LEUKOCYTE ESTERASE ,URINE 1+ (NEGATIVE); NITRITE, URINE NEGATIVE (NEGATIVE); PH,URINE 5.5 (5.0-8.0); UGLUCOSE NEGATIVE (NEGATIVE)
[2024-01-22 09:39] LABS: DIFFERENTIAL COMMENT 1
[2024-01-22 09:42] LABS: *BLOOD, URINE TRACE (NEGATIVE)
[2024-01-22 09:47] LABS: BILIRUBIN,TOTAL 0.5 mg/dL (0.2-1.0); CALCIUM 8.8 mg/dL (8.5-10.1); CREATININE 0.8 mg/dL (0.6-1.3); MAGNESIUM 2.2 mg/dL (1.8-2.4); POTASSIUM 4.3 mmol/L (3.5-5.1); TOTAL PROTEIN, SERUM 7.5 g/dL (6.4-8.2)
[2024-01-22 10:24] LABS: RBC,URINE 0-3 /HPF (0-3)
[2024-01-22 10:25] LABS: BACTERIA,URINE FEW /HPF (NONE SEEN); SQUAMOUS EPITHELIAL CELL,UR FEW /HPF (NONE SEEN)
== END 2024-01-22 23:59 | disposition home or self-care (01) ==
LOC: LAB 08:17
PROVIDERS: ATTEND Internal Medicine
DX: N40.0 Benign prostatic hyperplasia without lower urinary tract symptoms (principal); R10.9 Unspecified abdominal pain; R00.1 Bradycardia, unspecified; R10.11 Right upper quadrant pain; I10 Essential (primary) hypertension
CPT/HCPCS: 36415; 76705; 83735; 84153; 85025; 85651

== ENCOUNTER 2025-07-17 05:36 | Day surgery (SDC) | payer BC, OTHER ==
[2025-07-17 08:40] VITALS: BP 137/85; TEMP 97.7
[2025-07-17] MEDS ORDERED: PROPOFOL 200 MG/20 ML BOTTLE ONE (11:00)
[2025-07-17] MEDS ORDERED: LIDOCAINE-MPF 2% 5 ML VIAL ONE (11:00)
== END 2025-07-17 09:21 | disposition home or self-care (01) ==
LOC: DS 05:36
PROVIDERS: ATTEND Internal Medicine Gastroenterology
DX: Z12.11 Encounter for screening for malignant neoplasm of colon (principal); R10.13 Epigastric pain; K64.8 Other hemorrhoids; D17.79 Benign lipomatous neoplasm of other sites; K29.70 Gastritis, unspecified, without bleeding; K20.90 Esophagitis, unspecified without bleeding; I10 Essential (primary) hypertension; M19.90 Unspecified osteoarthritis, unspecified site; Z79.899 Other long term (current) drug therapy; Z98.890 Other specified postprocedural states
CPT/HCPCS: 36415; 43239; 45378; 71045; 85610; 85730; 88305; 88313; 88342; 93005; J3490; J7120; A4663